=== PATIENT | female | born 1990 | race African-American/Black ===

== ENCOUNTER 2023-06-12 07:44 | Emergency (ER) | payer OTHER, SELFPAY ==
[2023-06-12 07:43] VITALS: BP 160/121; PULSE 97; RESP 18; TEMP 36.4; O2SAT 100
--- NOTE | 2023-06-12 08:10 | ED.GENADULT ---
HPI - General Adult General Chief complaint: Abdominal Pain Stated complaint: abd pain, n/v since this am Time Seen by Provider: 06/12/23 07:44 History of Present Illness HPI narrative: Patient is a 33-year-old female who presents ER with abdominal pain. Began this morning. Cramping. Associate with nausea and overwhelming urge to have a bowel movement. [place] slightly unwell yesterday. Reports she took a Wegovy shot the day before that at an increased dose. No known sick contacts. No fevers or chills or sweats. Denies chest pain or chest pressure. Related Data Allergies Allergy/AdvReac Type Severity Reaction Status Date / Time ibuprofen Allergy Swelling Verified 06/12/23 08:23 sulfamethoxazole Allergy Unknown Verified 06/12/23 08:23 [From Bactrim] trimethoprim [From Bactrim] Allergy Unknown Verified 06/12/23 08:23 Review of Systems Review of Systems: All systems reviewed & are unremarkable except as noted in HPI and below Constitutional: Constitutional: Denies chills, Denies fatigue and Denies fever(s) ENT: Denies nasal congestion and Denies sore throat Cardiovascular: Cardiovascular: Denies chest pain, Denies rapid heart rate and Denies radiating jaw, neck or arm pain Gastrointestinal: Gastrointestinal: Reports abdominal pain, Reports bloating, Reports diarrhea and Reports nausea Genitourinary: Genitourinary: Reports no additional female genitourinary complaints Musculoskeletal: Musculoskeletal: Reports no additional musculoskeletal complaints Exam Narrative: GENERAL: Uncomfortable-appearing, well-nourished, and in no acute distress. HEAD: Normocephalic, atraumatic. ENT: Mucous membranes moist. CHEST: Clear to auscultation. No respiratory distress. HEART: Regular rate and rhythm. Normal peripheral pulses. ABDOMEN: Soft, nontender, nondistended. EXTREMITIES: Normal range of motion. No edema. SKIN: Warm, dry, no rash. NEURO: Alert and oriented x3. PSYCH: Normal mood and affect. Course Course Emergency Course: Patient resting comfortably. Informed of results. Patient felt appropriate for outpatient treatment. No localizing abdominal pain requiring CT. Vital Signs Vital signs: Vital Signs Temperature 97.6 F 06/12/23 07:43 Pulse Rate 97 06/12/23 07:43 Respiratory Rate 18 06/12/23 07:43 Blood Pressure 160/121 H 06/12/23 07:43 Pulse Oximetry 100 06/12/23 07:43 Oxygen Delivery Room Air 06/12/23 07:43 Temperature 97.6 F 06/12/23 07:43 Pulse Rate 86 06/12/23 09:02 Respiratory Rate 20 06/12/23 09:02 Blood Pressure 134/86 06/12/23 09:02 Pulse Oximetry 97 06/12/23 09:02 Oxygen Delivery Room Air 06/12/23 07:43 Medical Decision Making Vital Signs Vital Signs: Vital Signs Temperature 97.6 F 06/12/23 07:43 Pulse Rate 97 06/12/23 07:43 Respiratory Rate 18 06/12/23 07:43 Blood Pressure 160/121 H 06/12/23 07:43 Pulse Oximetry 100 06/12/23 07:43 Oxygen Delivery Room Air 06/12/23 07:43 Temperature 97.6 F 06/12/23 07:43 Pulse Rate 86 06/12/23 09:02 Respiratory Rate 20 06/12/23 09:02 Blood Pressure 134/86 06/12/23 09:02 Pulse Oximetry 97 06/12/23 09:02 Oxygen Delivery Room Air 06/12/23 07:43 Lab Data 06/12/23 08:14 06/12/23 08:56 Labs: Lab Results 06/12/23 06/12/23 Range/Units 08:14 08:56 WBC 14.0 H (4.5-10.0) K/mm3 RBC 5.05 (4.2-5.4) M/mm3 Hgb 14.0 (12.0-15.0) g/dL Hct 44.1 (37.0-47.0) % MCV 87.3 (80-100) fl MCH 27.7 (26-34) pg MCHC 31.7 L (32-36) g/dl RDW 13.5 (11.5-14.5) % Plt Count 280 (150-375) k/mm3 MPV 10.2 (7.4-10.4) fl Immature Gran % (Auto) 0.3 (0-0.5) % Neut % (Auto) 83.7 H (45.5-73.1) % Lymph % (Auto) 10.3 L (18.3-44.2) % [place] % (Auto) 5.4 (2.6-8.5) % Eos % (Auto) 0.1 (0-4.4) % Baso % (Auto) 0.2 (0.2-1.2) % Lymph # (Auto) 1.44 (0.9-3.2) K/mm3 [place] # (Auto) 0.8 H (0.1-0.6) K/mm3
[2023-06-12 08:24] LABS: Basophils Percent Auto 0.2 % (0.2-1.2); Eosinophils Percent Auto 0.1 % (0-4.4); Hematocrit 44.1 % (37.0-47.0); Immature Granulocyte Absolute 0.04 K/mm3 (0.00-0.031); Immature Granulocyte Percent A 0.3 % (0-0.5); Lymphocytes Absolute Auto 1.44 K/mm3 (0.9-3.2); Lymphocytes Percent Auto 10.3 % (18.3-44.2); Mean Corpuscular HGB Conc 31.7 g/dl (32-36); Mean Corpuscular Hemoglobin 27.7 pg (26-34); Mean Corpuscular Volume 87.3 fl (80-100); Mean Platelet Volume 10.2 fl (7.4-10.4); Monocytes Absolute Auto 0.8 K/mm3 (0.1-0.6); Monocytes Percent Auto 5.4 % (2.6-8.5); Neutrophils Absolute Auto 11.7 K/mm3 (1.3-6.7); Neutrophils Percent Auto 83.7 % (45.5-73.1); Platelet Count Result 280 k/mm3 (150-375); Red Blood Count 5.05 M/mm3 (4.2-5.4); Red Cell Distribution Width 13.5 % (11.5-14.5)
[2023-06-12] MEDS: DICYCLOMINE HCL INJ 20 MG/2 ML VIAL IM (08:24)
--- NOTE | 2023-06-12 08:35 | PC.NURSE ---
nurse notified redraw green top needed
[2023-06-12] MEDS: SODIUM CHLORIDE 0.9% IV 1,000 ML 999 ML IV CONT (08:57)
[2023-06-12] MEDS: ONDANSETRON INJ 4 MG/2 ML VIAL IV PUSH (09:00)
[2023-06-12 09:02] VITALS: BP 134/86; PULSE 86; RESP 20; O2SAT 97
[2023-06-12 09:20] LABS: Alanine Aminotransferase 23 U/L (6-35); Albumin Level 4.8 g/dL (3.5-5.1); Alkaline Phosphatase 64 U/L (38-126); Anion Gap 9 mmol/L (8-16); Aspartate Amino Transferase 32 U/L (14-36); Bilirubin,Total 0.5 mg/dL (0.2-1.3); Blood Urea Nitrogen 12 mg/dL (7-17); Calcium 9.7 mg/dL (8.4-10.2); Carbon Dioxide 27 mmol/L (22-30); Chloride 103 mmol/L (98-107); Estimated CRCL calculation 114 ml/min; Estimated Glomerular Filt Rate > 60; Glucose 90 mg/dL (65-110); Lipase 105 U/L (23-300); Potassium 3.9 mmol/L (3.4-5.0); Sodium 139 mmol/L (137-145)
== END 2023-06-12 10:16 | disposition home or self-care (01) ==
PROVIDERS: Emergency Provider Emergency Medicine; PCP Family Medicine
DX: K52.9 Noninfective gastroenteritis and colitis, unspecified (principal)
CPT/HCPCS: 36415; 80053; 81025; 83690; 85025; 96361; 96372; 96374; 99284; J0500; J2405; J7030